=== PATIENT | female | born 2000 | race Caucasian/White ===

== ENCOUNTER 2022-10-01 09:05 | Emergency (ER) | payer SELFPAY ==
[2022-10-01 09:13] VITALS: BP 150/82; PULSE 108; RESP 16; TEMP 36.4; O2SAT 98; BMI 29.5
--- NOTE | 2022-10-01 09:17 | XR_ITS ---
The [address] [address] Patient Name: HEIDI MANNING MRN: [id number] date: 2000 Sex: F Assigned Patient Location: ER Current Patient Location: ER Accession/Order Number: [id number] Exam Date: 10/01/2022 09:30 Report Date: 10/01/2022 10:05 At the request of: ALEJA TRIVEDI Procedure: XR ankle LT min 3V EXAM: XR ankle LT min 3V HISTORY: Pain. COMPARISON: None. TECHNIQUE: AP, mortise and lateral views of the left ankle performed. FINDINGS: The bony alignment and mineralization are within normal limits. There is no fracture. The plafond and the talar dome are smoothly marginated. There is no osteochondral injury along the talar dome. The ankle mortise is anatomic. The joint spaces are maintained. There is soft tissue swelling at the ankle, most prominent medially. IMPRESSION: There is no acute fracture or malalignment. There is soft tissue swelling at the ankle, most prominent medially. Electronically authenticated by: ANTONELLA CRUZ Date: 10/01/2022 10:05
--- NOTE | 2022-10-01 09:17 | XR_ITS ---
The [place] [id number] Patient Name: HEIDI MANNING MRN: [id number] date: 2000 Sex: F Assigned Patient Location: ER Current Patient Location: ED.MAIN Accession/Order Number: [id number] Exam Date: 10/01/2022 09:30 Report Date: 10/01/2022 10:21 At the request of: ALEJA TRIVEDI Procedure: XR foot LT min 3V PROCEDURE: XR foot LT min 3V HISTORY: pain, twisted COMPARISON: None. FINDINGS: BONES:No fracture, acute abnormality, or significant arthropathy. SOFT TISSUES:Prominent soft tissue swelling surrounding the ankle and over dorsum of foot. EFFUSION:None visible. OTHER: Negative. IMPRESSION: 1. Prominent swelling suggesting soft tissue injury. 2. No acute bone abnormality. Electronically authenticated by: SUNIL TORRES Date: 10/01/2022 10:21
--- NOTE | 2022-10-01 09:19 | ED.LOWEXI1 ---
HPI - Extremity Injury (Lower) General Chief Complaint: Extremity Injury, Lower Stated Complaint: LOWER EXTREMITY INJURY LEFT FOOT Time Seen by Provider: 10/01/22 09:17 Source: family Mode of arrival: walk-in History of Present Illness HPI Narrative: 21-year-old female presents for pain and swelling in the left foot and ankle. It happened two days ago and she wouldn't bear weight on it well today. Most of the history is obtained from her mother. The pain cannot be quantified as described by the patient. Related Data Home Medications Medication Instructions Recorded Confirmed dexmethylphenidate 40 mg 40 mg PO QDAY 10/01/22 10/01/22 capsule,extended release [id number] divalproex 500 mg tablet,extended 500 mg PO QDAY 10/01/22 10/01/22 release 24 hr risperidone 1 mg tablet 1 mg PO .qhs 10/01/22 10/01/22 Allergies Allergy/AdvReac Type Severity Reaction Status Date / Time No Known Drug Allergies Allergy Verified 10/01/22 09:12 Review of Systems ROS Narrative A ten point review of systems is negative except as noted above. Exam Narrative Exam Narrative: Nurses note and vital signs reviewed and patient is not hypoxic. General: The patient appears Anxious and in no apparent distress. Skin: Warm, dry, no pallor noted. There is no rash noted. Head: Normocephalic, atraumatic Eye: Normal conjunctiva, no drainage Ears, Nose, Mouth, and Throat: oral mucosa is moist. Nares patent. Cardiovascular: Regular Rate and Rhythm Respiratory: Patient is in no distress, no accessory muscle use Back: non-tender GI: Nontender Musculoskeletal: There is swelling in the left ankle and foot area with some bruising at the medial proximal portion of the foot. Skin intact. Neurological: Awake and alert Psychiatric: Anxious Constitutional Vital Signs - 24 hr 10/01/22 09:13 Temperature 97.6 F Pulse Rate [Monitor] 108 H Respiratory Rate 16 Blood Pressure [Left Arm] 150/82 H Pulse Oximetry 98 Oxygen Delivery Method Room Air Course Vital Signs Vital signs: Vital Signs Temperature 97.6 F 10/01/22 09:13 Pulse Rate 108 H 10/01/22 09:13 Respiratory Rate 16 10/01/22 09:13 Blood Pressure 150/82 H 10/01/22 09:13 Pulse Oximetry 98 10/01/22 09:13 Oxygen Delivery Method Room Air 10/01/22 09:13 Temperature 97.6 F 10/01/22 09:13 Pulse Rate 108 H 10/01/22 09:13 Respiratory Rate 16 10/01/22 09:13 Blood Pressure 150/82 H 10/01/22 09:13 Pulse Oximetry 98 10/01/22 09:13 Oxygen Delivery Method Room Air 10/01/22 09:13 MDM - Extremity Injury (Lower) MDM Narrative Medical decision making narrative: X-rays of foot and ankle per radiologist shows soft tissue swelling but no fractures. The patient would not be able to do crutches and mother is in agreement with this. She will use ice rest and ibuprofen and elevation. Treatment diagnosis and follow-up were discussed with the patient's mother. Differential Diagnosis Differential diagnosis: Likely ankle sprain and strain and other (Foot fracture, foot sprain) Discharge Plan Discharge Chief Complaint: Extremity Injury, Lower Clinical Impression: Foot sprain Patient Disposition: Home, Self-Care Time of Disposition Decision: 10:31 Condition: Good Mode of Transportation: Private Vehicle Prescriptions / Home Meds: No Action risperidone 1 mg tablet 1 mg PO .qhs Patient Comments: 1.5 divalproex 500 mg tablet extended release 24 hr 500 mg PO QDAY dexmethylphenidate 40 mg capsule,ER biphasic 50-50 40 mg PO QDAY Stand Alone Forms: Portal Instructions Referrals: BIANCA PERDOMO [Primary Care Provider] - 1 week
== END 2022-10-01 10:44 | disposition home or self-care (01) ==
PROVIDERS: Emergency Provider Emergency Medicine; PCP Family Medicine
DX: S93.602A Unspecified sprain of left foot, initial encounter (principal); X58.XXXA Exposure to other specified factors, initial encounter
CPT/HCPCS: 73610; 73630; 99284